=== PATIENT | female | born 1945 | race Two or more races ===

== ENCOUNTER 2017-08-10 20:56 | Inpatient (IN) | payer MEDICARE, MEDICAID ==
[~2017-08-10] VITALS: Ht 157.5 cm; Wt 81.6 kg
[~2017-08-10 20:56] MED LIST: PRED20TA PO
[2017-08-10] MEDS ORDERED: ALBUTEROL FS 2.5 MG/3 ML VIAL.NEB NEB ONE (22:00)
[2017-08-10 22:27] LABS: HEMATOCRIT 36 % (33-45); HEMOGLOBIN 11.9 g/dL (11.5-14.8); LYMPHOCYTES # (AUTO) 1.3 /CMM (0.8-4.8); LYMPHOCYTES % (AUTO) 9.7 % (20.0-44.0); MEAN CORPUSCULAR HEMOGLOBIN 30 PG (26.0-33.0); MEAN CORPUSCULAR HGB CONC 33 g/dl (31.0-36.0); MEAN CORPUSCULAR VOLUME 91 fL (82-100); MONOCYTES # (AUTO) 0.5 /CMM (0.1-1.30); MONOCYTES % (AUTO) 3.7 % (2.0-12.0); NEUTROPHILS # (AUTO) 11.2 /CMM (1.8-8.9); NEUTROPHILS % (AUTO) 86.6 % (43.0-81.0); PLATELET COUNT (AUTO) 163 /CMM (150-450); RDW COEFFICIENT OF VARIATION 19.2 (11.5-15.0); RED BLOOD CELL COUNT(AUTO) 3.97 MIL/uL (4.0-5.2); WHITE BLOOD COUNT (AUTO) 12.9 K/uL (4.3-11.0)
[2017-08-10] MEDS ORDERED: ALBUTEROL FS 2.5 MG/3 ML VIAL.NEB ONE (22:34)
[2017-08-10 22:38] LABS: CALCIUM, SERUM 8.6 mg/dL (8.5-10.1); CARBON DIOXIDE 31 mmol/L (21-32); CHLORIDE 103 mmol/L (98-107); CREATININE 1.1 mg/dL (0.6-1.3); GLUCOSE 232 mg/dL (74-106); POTASSIUM 4.3 mmol/L (3.5-5.1); SODIUM SERUM 140 mmol/L (136-145); UREA NITROGEN, BLOOD 23 mg/dL (7-18)
[2017-08-10 22:56] LABS: ACETAMINOPHEN 0 ug/ml (10-30); ALANINE AMINOTRANSFERASE 21 U/L (12-78); ALBUMIN 2.7 g/dL (3.4-5.0); ALKALINE PHOSPHATASE 114 U/L (46-116); ASPARTATE AMINOTRANSFERASE 9 U/L (15-37); B-TYPE NATRIURETIC PEPTIDE 179 PG/ML (0-125); BILIRUBIN,TOTAL 0.2 mg/dL (0.2-1.0); TOTAL PROTEIN, SERUM 5.9 g/dL (6.4-8.2)
[2017-08-10 22:57] LABS: ALCOHOL, BLOOD < 3 mg/dL (0-0); SALICYLATE 0.2 mg/dL (2.8-20.0)
[2017-08-10 22:58] LABS: TROPONIN I < 0.017 ng/mL (0.00-0.056)
[2017-08-10] MEDS ORDERED: TEMAZEPAM 7.5 MG CAPSULE PO PRN (23:30)
[2017-08-10] MEDS ORDERED: MAG HYDROX/AL HYDROX/SIMETH 30 ML UDC PO PRN (23:30)
[2017-08-10] MEDS ORDERED: MAGNESIUM HYDROXIDE 30 ML UDC PO PRN (23:30)
[2017-08-10] MEDS ORDERED: LORAZEPAM 0.5 MG TABLET PO PRN (23:30)
[2017-08-10] MEDS ORDERED: ACETAMINOPHEN 325 MG TABLET PO PRN (23:30)
[2017-08-11] VITALS (7 sets, daily range): BP systolic 99–145; BP diastolic 59–71
[2017-08-11] MEDS ORDERED: ADAL40PE SQ (00:10)
[2017-08-11] MEDS ORDERED: ASPI-605 PO (00:11)
[2017-08-11] MEDS ORDERED: ATOR20TA PO (00:12)
[2017-08-11] MEDS ORDERED: BUDE0.5A4 NEB (00:16)
[2017-08-11] MEDS ORDERED: BUDE10.2 INH (00:18)
[2017-08-11] MEDS ORDERED: CHOL200026 PO (00:19)
[2017-08-11] MEDS ORDERED: CYAN10009 PO (00:21)
[2017-08-11] MEDS ORDERED: DIVA500T2 PO (00:22)
[2017-08-11] MEDS ORDERED: DONE5TAB34 PO (00:23)
[2017-08-11] MEDS ORDERED: FLUT16SP BNOSTRILS (00:25)
[2017-08-11] MEDS ORDERED: FOLI1TAB16 PO (00:26)
[2017-08-11] MEDS ORDERED: ALEN70TA3 PO (00:30)
[2017-08-11] MEDS ORDERED: LEVA0.6320 NEB (00:31)
[2017-08-11] MEDS ORDERED: ESCI10TA PO (00:39)
[2017-08-11] MEDS ORDERED: LORA10TA7 PO (00:40)
[2017-08-11] MEDS ORDERED: LOSA50TA21 PO (00:41)
[2017-08-11] MEDS ORDERED: METH10TA7 PO (00:43)
[2017-08-11] MEDS ORDERED: METH2.5T PO (00:47)
[2017-08-11] MEDS ORDERED: METO-358 PO (00:49)
[2017-08-11] MEDS ORDERED: MONT10TA22 PO (00:50)
[2017-08-11] MEDS ORDERED: OXYC15TA2 PO (00:53)
[2017-08-11] MEDS ORDERED: CALC-811 PO (00:56)
[2017-08-11] MEDS ORDERED: PANT40TA4 PO (00:56)
[2017-08-11] MEDS ORDERED: Z GUARD REMEDY 2 OZ OINT TP PRN (01:00)
[2017-08-11] MEDS ORDERED: PRED50TA PO ×3 (01:12→01:25)
[2017-08-11] MEDS ORDERED: PRED10TA PO (01:17)
[2017-08-11] MEDS ORDERED: PRED20TA PO (01:27)
[2017-08-11] MEDS ORDERED: PRED5TAB48 PO ×4 (01:29→01:35)
[2017-08-11] MEDS ORDERED: D-ME118S12 PO (01:37)
[2017-08-11] MEDS ORDERED: SENN-18 PO (01:37)
[2017-08-11] MEDS ORDERED: QUET100T PO (01:39)
[2017-08-11] MEDS ORDERED: QUET50TA PO (01:40)
[2017-08-11] MEDS: Z GUARD REMEDY 2 OZ OINT TP SCH (08:18)
[2017-08-11] MEDS: BUDESONIDE RESPULE INH 0.25 MG/2 ML AMPUL.NEB NEB SCH ×2 (12:00→19:51)
[2017-08-11] MEDS ORDERED: oxyCODONE IR immediate release 5 MG PO SCH (12:00)
[2017-08-11] MEDS: CYANOCOBALAMIN 500 MCG TABLET PO SCH (12:28)
[2017-08-11] MEDS ORDERED: oxyCODONE IR immediate release 5 MG PO PRN (12:29)
[2017-08-11] MEDS: LOSARTAN POTASSIUM 50 MG TABLET PO SCH ×2 (12:29→16:25)
[2017-08-11] MEDS: ALBUTEROL FS 2.5 MG/0.5 ML VIAL.NEB NEB SCH ×2 (13:30→19:51)
[2017-08-11] MEDS ORDERED: OLANZAPINE 10 MG VIAL IM STA (13:47)
[2017-08-11] MEDS ORDERED: LORAZEPAM INJ 2 MG/ML VIAL IM ONE (14:00)
[2017-08-11] MEDS: DIVALPROEX SODIUM 250 MG TABLET.DR PO SCH ×2 (16:19→21:19)
[2017-08-11] MEDS: SENNOSIDES 8.6 MG TABLET PO SCH (16:20)
[2017-08-11] MEDS: CALCIUM CARB 600MG /VIT D 1 EACH TABLET PO SCH (16:20)
[2017-08-11] MEDS: DONEPEZIL 5 MG TABLET PO SCH (16:20)
[2017-08-11] MEDS: FLUTICASONE PROPIONATE 16 GM BOTTLE NS SCH (16:26)
[2017-08-11] MEDS: QUETIAPINE FUMARATE 25 MG TABLET PO SCH (16:39)
[2017-08-11] MEDS: METHIMAZOLE (5MG) 5 MG TABLET PO SCH (16:51)
[2017-08-11] MEDS ORDERED: Medication Not On Formulary EA (Budesonide/Formoterol Fumarate (Symbicort 160-4.5 Mcg In INH SCH (17:00)
[2017-08-11] MEDS: LORATADINE 10 MG TABLET PO SCH (22:03)
[2017-08-11] MEDS: QUETIAPINE FUMARATE 100 MG TABLET PO SCH (22:03)
[2017-08-11] MEDS: MONTELUKAST SODIUM (10MG) 10 MG TABLET PO SCH (22:03)
[2017-08-11] MEDS: ATORVASTATIN 10 MG TABLET PO SCH (22:03)
[2017-08-12] MEDS: ALBUTEROL FS 2.5 MG/0.5 ML VIAL.NEB NEB SCH ×4 (01:30→20:58)
[2017-08-12 07:15] LABS: BASOPHILS % (AUTO) 0.4 % (0.0-2.0); EOSINOPHILS # (AUTO) 0.1 /CMM (0.0-0.7); EOSINOPHILS % (AUTO) 0.8 % (0.0-6.0); HEMATOCRIT 37 % (33-45); HEMOGLOBIN 12.3 g/dL (11.5-14.8); LYMPHOCYTES # (AUTO) 2.7 /CMM (0.8-4.8); MEAN CORPUSCULAR HEMOGLOBIN 30 PG (26.0-33.0); MEAN CORPUSCULAR HGB CONC 33 g/dl (31.0-36.0); MEAN CORPUSCULAR VOLUME 91 fL (82-100); MONOCYTES # (AUTO) 0.8 /CMM (0.1-1.30); MONOCYTES % (AUTO) 8.7 % (2.0-12.0); NEUTROPHILS # (AUTO) 5.2 /CMM (1.8-8.9); NEUTROPHILS % (AUTO) 59.1 % (43.0-81.0); PLATELET COUNT (AUTO) 194 /CMM (150-450); RDW COEFFICIENT OF VARIATION 19.1 (11.5-15.0); RED BLOOD CELL COUNT(AUTO) 4.07 MIL/uL (4.0-5.2); WHITE BLOOD COUNT (AUTO) 8.8 K/uL (4.3-11.0)
[2017-08-12 07:50] VITALS: BP 119/50
[2017-08-12] MEDS: BUDESONIDE RESPULE INH 0.25 MG/2 ML AMPUL.NEB NEB SCH ×2 (08:01→20:58)
[2017-08-12] MEDS: SENNOSIDES 8.6 MG TABLET PO SCH ×2 (08:05→16:09)
[2017-08-12] MEDS: DIVALPROEX SODIUM 250 MG TABLET.DR PO SCH ×3 (08:05→21:02)
[2017-08-12] MEDS: CALCIUM CARB 600MG /VIT D 1 EACH TABLET PO SCH ×2 (08:05→16:10)
[2017-08-12] MEDS: CYANOCOBALAMIN 500 MCG TABLET PO SCH (08:06)
[2017-08-12] MEDS: DONEPEZIL 5 MG TABLET PO SCH ×2 (08:06→16:10)
[2017-08-12] MEDS: METHIMAZOLE (5MG) 5 MG TABLET PO SCH ×2 (08:06→16:09)
[2017-08-12] MEDS: QUETIAPINE FUMARATE 25 MG TABLET PO SCH ×2 (08:07→16:18)
[2017-08-12 08:08] LABS: ALBUMIN 2.4 g/dL (3.4-5.0); BILIRUBIN,TOTAL 0.4 mg/dL (0.2-1.0); CALCIUM, SERUM 8.2 mg/dL (8.5-10.1); CREATININE 0.8 mg/dL (0.6-1.3); POTASSIUM 3.7 mmol/L (3.5-5.1); THYROID STIMULATING HORMONE 4.745 uIU/mL (0.358-3.74); TOTAL PROTEIN, SERUM 5.6 g/dL (6.4-8.2)
[2017-08-12] MEDS: ESCITALOPRAM OXALATE (10 MG) 10 MG TABLET PO SCH (08:09)
[2017-08-12] MEDS: ASPIRIN EC 81 MG TABLET.DR PO SCH (08:09)
[2017-08-12] MEDS: FOLIC ACID 1 MG TABLET PO SCH (08:10)
[2017-08-12] MEDS: PANTOPRAZOLE 40 MG TABLET.DR PO SCH (08:10)
[2017-08-12] MEDS: LOSARTAN POTASSIUM 50 MG TABLET PO SCH ×2 (08:10→16:12)
[2017-08-12] MEDS: METOPROLOL SUCCINATE 50 MG TAB.SR.24H PO SCH ×2 (08:10→16:16)
[2017-08-12] MEDS: Z GUARD REMEDY 2 OZ OINT TP SCH (08:13)
[2017-08-12] MEDS: FLUTICASONE PROPIONATE 16 GM BOTTLE NS SCH ×2 (08:13→16:12)
[2017-08-12] MEDS: CHOLECALCIFEROL 1,000 UNIT TABLET (VIT D3) PO SCH (08:15)
[2017-08-12] MEDS ORDERED: CHOLECALCIFEROL 1,000 UNIT TABLET (VIT D3) PO SCH (09:00)
[2017-08-12 16:00] VITALS: BP 127/59
[2017-08-12 19:49] VITALS: BP 96/49
[2017-08-12] MEDS: MONTELUKAST SODIUM (10MG) 10 MG TABLET PO SCH (21:03)
[2017-08-12] MEDS: LORATADINE 10 MG TABLET PO SCH (21:03)
[2017-08-12] MEDS: ATORVASTATIN 10 MG TABLET PO SCH (21:03)
[2017-08-12 21:13] VITALS: BP 108/65
[2017-08-12] MEDS: QUETIAPINE FUMARATE 100 MG TABLET PO SCH (21:14)
[2017-08-13] MEDS: ALBUTEROL FS 2.5 MG/0.5 ML VIAL.NEB NEB SCH ×4 (00:57→19:09)
[2017-08-13 08:00] VITALS: BP 118/54
[2017-08-13] MEDS: BUDESONIDE RESPULE INH 0.25 MG/2 ML AMPUL.NEB NEB SCH ×2 (08:24→19:14)
[2017-08-13] MEDS ORDERED: METHOTREXATE SODIUM (2.5MG) 2.5 MG TABLET PO SCH (09:00)
[2017-08-13] MEDS: ASPIRIN EC 81 MG TABLET.DR PO SCH (09:06)
[2017-08-13] MEDS: CHOLECALCIFEROL 1,000 UNIT TABLET (VIT D3) PO SCH (09:06)
[2017-08-13] MEDS: FOLIC ACID 1 MG TABLET PO SCH (09:06)
[2017-08-13] MEDS: DIVALPROEX SODIUM 250 MG TABLET.DR PO SCH ×3 (09:06→21:22)
[2017-08-13] MEDS: PANTOPRAZOLE 40 MG TABLET.DR PO SCH (09:06)
[2017-08-13] MEDS: DONEPEZIL 5 MG TABLET PO SCH ×2 (09:06→18:52)
[2017-08-13] MEDS: ESCITALOPRAM OXALATE (10 MG) 10 MG TABLET PO SCH (09:06)
[2017-08-13] MEDS: CYANOCOBALAMIN 500 MCG TABLET PO SCH (09:06)
[2017-08-13] MEDS: SENNOSIDES 8.6 MG TABLET PO SCH ×2 (09:06→18:51)
[2017-08-13] MEDS: CALCIUM CARB 600MG /VIT D 1 EACH TABLET PO SCH ×2 (09:06→18:56)
[2017-08-13] MEDS: METOPROLOL SUCCINATE 50 MG TAB.SR.24H PO SCH ×2 (09:08→18:51)
[2017-08-13] MEDS: FLUTICASONE PROPIONATE 16 GM BOTTLE NS SCH ×2 (09:10→17:00)
[2017-08-13] MEDS: NEOMY SULF/BACITRAC ZN/POLY 15 GM TUBE TP SCH (09:11)
[2017-08-13] MEDS: Z GUARD REMEDY 2 OZ OINT TP SCH (09:12)
[2017-08-13] MEDS: QUETIAPINE FUMARATE 25 MG TABLET PO SCH ×2 (09:16→18:56)
[2017-08-13] MEDS: METHIMAZOLE (5MG) 5 MG TABLET PO SCH ×2 (09:17→18:52)
[2017-08-13] MEDS: LOSARTAN POTASSIUM 50 MG TABLET PO SCH ×2 (09:18→18:51)
[2017-08-13] MEDS ORDERED: DEXTROSE 50%-WATER 50 ML DISP.SYRIN IV PRN (11:00)
[2017-08-13] MEDS: BLOOD SUGAR DIAGNOSTIC 1 EACH STRIP IN SCH ×3 (11:43→21:38)
[2017-08-13 16:00] VITALS: BP 100/66
[2017-08-13 20:06] VITALS: BP 107/70
[2017-08-13] MEDS: ATORVASTATIN 10 MG TABLET PO SCH (21:22)
[2017-08-13] MEDS: QUETIAPINE FUMARATE 100 MG TABLET PO SCH (21:22)
[2017-08-13] MEDS: LORATADINE 10 MG TABLET PO SCH (21:22)
[2017-08-13] MEDS: MONTELUKAST SODIUM (10MG) 10 MG TABLET PO SCH (21:22)
[2017-08-13] MEDS: INSULIN REGULAR, HUMAN 100 UNIT/ML 3 ML VIAL SQ PRN (21:42)
[2017-08-14] MEDS: ALBUTEROL FS 2.5 MG/0.5 ML VIAL.NEB NEB SCH ×4 (01:08→22:55)
[2017-08-14] MEDS: BUDESONIDE RESPULE INH 0.25 MG/2 ML AMPUL.NEB NEB SCH ×2 (07:30→19:30)
[2017-08-14 08:00] VITALS: BP 108/63
[2017-08-14] MEDS: DIVALPROEX SODIUM 250 MG TABLET.DR PO SCH ×3 (08:03→20:41)
[2017-08-14] MEDS: METHIMAZOLE (5MG) 5 MG TABLET PO SCH ×2 (08:03→16:16)
[2017-08-14] MEDS: CYANOCOBALAMIN 500 MCG TABLET PO SCH (08:03)
[2017-08-14] MEDS: ESCITALOPRAM OXALATE (10 MG) 10 MG TABLET PO SCH (08:04)
[2017-08-14] MEDS: LOSARTAN POTASSIUM 50 MG TABLET PO SCH ×2 (08:04→16:17)
[2017-08-14] MEDS: CHOLECALCIFEROL 1,000 UNIT TABLET (VIT D3) PO SCH (08:04)
[2017-08-14] MEDS: DONEPEZIL 5 MG TABLET PO SCH ×2 (08:04→16:17)
[2017-08-14] MEDS: QUETIAPINE FUMARATE 25 MG TABLET PO SCH ×2 (08:04→16:15)
[2017-08-14] MEDS: FOLIC ACID 1 MG TABLET PO SCH (08:05)
[2017-08-14] MEDS: SENNOSIDES 8.6 MG TABLET PO SCH ×2 (08:05→16:15)
[2017-08-14] MEDS: PANTOPRAZOLE 40 MG TABLET.DR PO SCH (08:05)
[2017-08-14] MEDS: ASPIRIN EC 81 MG TABLET.DR PO SCH (08:05)
[2017-08-14] MEDS: METOPROLOL SUCCINATE 50 MG TAB.SR.24H PO SCH ×2 (08:05→16:16)
[2017-08-14] MEDS: CALCIUM CARB 600MG /VIT D 1 EACH TABLET PO SCH ×2 (08:05→16:16)
[2017-08-14] MEDS: NEOMY SULF/BACITRAC ZN/POLY 15 GM TUBE TP SCH (08:06)
[2017-08-14] MEDS: BLOOD SUGAR DIAGNOSTIC 1 EACH STRIP IN SCH ×4 (08:12→22:10)
[2017-08-14] MEDS: FLUTICASONE PROPIONATE 16 GM BOTTLE NS SCH ×2 (08:49→16:19)
[2017-08-14] MEDS: Z GUARD REMEDY 2 OZ OINT TP SCH (08:56)
[2017-08-14 15:41] VITALS: BP 120/69
[2017-08-14] MEDS: FLUTICASONE/VILANTEROL 1 EACH BLST.W.DEV IH SCH (15:57)
[2017-08-14 20:00] VITALS: BP 131/68
[2017-08-14] MEDS: ATORVASTATIN 10 MG TABLET PO SCH (22:20)
[2017-08-14] MEDS: LORATADINE 10 MG TABLET PO SCH (22:20)
[2017-08-14] MEDS: MONTELUKAST SODIUM (10MG) 10 MG TABLET PO SCH (22:20)
[2017-08-14] MEDS: QUETIAPINE FUMARATE 100 MG TABLET PO SCH (22:33)
[2017-08-15] MEDS: ALBUTEROL FS 2.5 MG/0.5 ML VIAL.NEB NEB SCH ×4 (02:42→20:38)
[2017-08-15] MEDS: BLOOD SUGAR DIAGNOSTIC 1 EACH STRIP IN SCH ×4 (07:19→21:19)
[2017-08-15] MEDS ORDERED: ALENDRONATE 70 MG TABLET PO SCH (07:30)
[2017-08-15] MEDS: INSULIN REGULAR, HUMAN 100 UNIT/ML 3 ML VIAL SQ PRN ×3 (07:57→17:29)
[2017-08-15 08:00] VITALS: BP 117/59
[2017-08-15] MEDS: BUDESONIDE RESPULE INH 0.25 MG/2 ML AMPUL.NEB NEB SCH ×2 (08:10→19:30)
[2017-08-15] MEDS: PANTOPRAZOLE 40 MG TABLET.DR PO SCH (08:52)
[2017-08-15] MEDS: METHIMAZOLE (5MG) 5 MG TABLET PO SCH ×2 (08:52→16:15)
[2017-08-15] MEDS: QUETIAPINE FUMARATE 25 MG TABLET PO SCH ×2 (08:52→16:15)
[2017-08-15] MEDS: DONEPEZIL 5 MG TABLET PO SCH ×2 (08:52→16:15)
[2017-08-15] MEDS: LOSARTAN POTASSIUM 50 MG TABLET PO SCH ×2 (08:52→16:15)
[2017-08-15] MEDS: DIVALPROEX SODIUM 250 MG TABLET.DR PO SCH ×3 (08:52→20:24)
[2017-08-15] MEDS: CHOLECALCIFEROL 1,000 UNIT TABLET (VIT D3) PO SCH (08:53)
[2017-08-15] MEDS: FOLIC ACID 1 MG TABLET PO SCH (08:53)
[2017-08-15] MEDS: SENNOSIDES 8.6 MG TABLET PO SCH ×2 (08:53→16:14)
[2017-08-15] MEDS: CYANOCOBALAMIN 500 MCG TABLET PO SCH (08:53)
[2017-08-15] MEDS: ESCITALOPRAM OXALATE (10 MG) 10 MG TABLET PO SCH (08:53)
[2017-08-15] MEDS: CALCIUM CARB 600MG /VIT D 1 EACH TABLET PO SCH ×2 (08:53→16:14)
[2017-08-15] MEDS: METOPROLOL SUCCINATE 50 MG TAB.SR.24H PO SCH ×2 (08:53→16:15)
[2017-08-15] MEDS: ASPIRIN EC 81 MG TABLET.DR PO SCH (08:53)
[2017-08-15] MEDS: NEOMY SULF/BACITRAC ZN/POLY 15 GM TUBE TP SCH (08:54)
[2017-08-15] MEDS: Z GUARD REMEDY 2 OZ OINT TP SCH (08:54)
[2017-08-15] MEDS: FLUTICASONE/VILANTEROL 1 EACH BLST.W.DEV IH SCH (08:59)
[2017-08-15] MEDS: FLUTICASONE PROPIONATE 16 GM BOTTLE NS SCH ×2 (09:00→16:17)
[2017-08-15 16:00] VITALS: BP 100/59
[2017-08-15 20:00] VITALS: BP 94/51
[2017-08-15] MEDS: MONTELUKAST SODIUM (10MG) 10 MG TABLET PO SCH (21:19)
[2017-08-15] MEDS: LORATADINE 10 MG TABLET PO SCH (21:19)
[2017-08-15] MEDS: QUETIAPINE FUMARATE 100 MG TABLET PO SCH (21:19)
[2017-08-15] MEDS: ATORVASTATIN 10 MG TABLET PO SCH (21:19)
[2017-08-16] MEDS: ALBUTEROL FS 2.5 MG/0.5 ML VIAL.NEB NEB SCH ×4 (01:30→19:30)
[2017-08-16] MEDS: BLOOD SUGAR DIAGNOSTIC 1 EACH STRIP IN SCH ×4 (07:52→21:31)
[2017-08-16] MEDS: BUDESONIDE RESPULE INH 0.25 MG/2 ML AMPUL.NEB NEB SCH ×2 (07:59→19:30)
[2017-08-16 08:00] VITALS: BP 90/52
[2017-08-16] MEDS: INSULIN REGULAR, HUMAN 100 UNIT/ML 3 ML VIAL SQ PRN (08:10)
[2017-08-16] MEDS: PANTOPRAZOLE 40 MG TABLET.DR PO SCH (08:55)
[2017-08-16] MEDS: CHOLECALCIFEROL 1,000 UNIT TABLET (VIT D3) PO SCH (08:55)
[2017-08-16] MEDS: METHIMAZOLE (5MG) 5 MG TABLET PO SCH ×2 (08:55→16:13)
[2017-08-16] MEDS: CALCIUM CARB 600MG /VIT D 1 EACH TABLET PO SCH ×2 (08:55→16:12)
[2017-08-16] MEDS: ESCITALOPRAM OXALATE (10 MG) 10 MG TABLET PO SCH (08:55)
[2017-08-16] MEDS: QUETIAPINE FUMARATE 25 MG TABLET PO SCH ×2 (08:55→16:13)
[2017-08-16] MEDS: FOLIC ACID 1 MG TABLET PO SCH (08:55)
[2017-08-16] MEDS: DONEPEZIL 5 MG TABLET PO SCH ×2 (08:55→16:13)
[2017-08-16] MEDS: CYANOCOBALAMIN 500 MCG TABLET PO SCH (08:55)
[2017-08-16] MEDS: ASPIRIN EC 81 MG TABLET.DR PO SCH (08:56)
[2017-08-16] MEDS: SENNOSIDES 8.6 MG TABLET PO SCH ×2 (08:56→16:13)
[2017-08-16] MEDS: DIVALPROEX SODIUM 250 MG TABLET.DR PO SCH ×3 (08:57→21:14)
[2017-08-16] MEDS: LOSARTAN POTASSIUM 50 MG TABLET PO SCH ×2 (09:00→16:30)
[2017-08-16] MEDS: METOPROLOL SUCCINATE 50 MG TAB.SR.24H PO SCH ×2 (09:00→16:31)
[2017-08-16] MEDS: NEOMY SULF/BACITRAC ZN/POLY 15 GM TUBE TP SCH (09:08)
[2017-08-16] MEDS: Z GUARD REMEDY 2 OZ OINT TP SCH (09:08)
[2017-08-16] MEDS: FLUTICASONE/VILANTEROL 1 EACH BLST.W.DEV IH SCH (09:14)
[2017-08-16] MEDS: FLUTICASONE PROPIONATE 16 GM BOTTLE NS SCH ×2 (09:14→16:36)
[2017-08-16 16:27] VITALS: BP 84/51
[2017-08-16 20:00] VITALS: BP 92/54
[2017-08-16] MEDS: QUETIAPINE FUMARATE 100 MG TABLET PO SCH (21:14)
[2017-08-16] MEDS: MONTELUKAST SODIUM (10MG) 10 MG TABLET PO SCH (21:14)
[2017-08-16] MEDS: LORATADINE 10 MG TABLET PO SCH (21:14)
[2017-08-16] MEDS: ATORVASTATIN 10 MG TABLET PO SCH (21:35)
[2017-08-17] MEDS: ALBUTEROL FS 2.5 MG/0.5 ML VIAL.NEB NEB SCH ×5 (01:20→20:44)
[2017-08-17] MEDS: BUDESONIDE RESPULE INH 0.25 MG/2 ML AMPUL.NEB NEB SCH ×2 (07:30→19:30)
[2017-08-17 08:00] VITALS: BP 119/68
[2017-08-17] MEDS: BLOOD SUGAR DIAGNOSTIC 1 EACH STRIP IN SCH ×4 (08:11→21:43)
[2017-08-17] MEDS: INSULIN REGULAR, HUMAN 100 UNIT/ML 3 ML VIAL SQ PRN (08:12)
[2017-08-17] MEDS: NEOMY SULF/BACITRAC ZN/POLY 15 GM TUBE TP SCH (08:12)
[2017-08-17] MEDS: CALCIUM CARB 600MG /VIT D 1 EACH TABLET PO SCH ×2 (08:13→16:49)
[2017-08-17] MEDS: PANTOPRAZOLE 40 MG TABLET.DR PO SCH (08:13)
[2017-08-17] MEDS: CYANOCOBALAMIN 500 MCG TABLET PO SCH (08:13)
[2017-08-17] MEDS: METHIMAZOLE (5MG) 5 MG TABLET PO SCH ×2 (08:14→16:51)
[2017-08-17] MEDS: SENNOSIDES 8.6 MG TABLET PO SCH ×2 (08:14→16:50)
[2017-08-17] MEDS: QUETIAPINE FUMARATE 25 MG TABLET PO SCH ×2 (08:14→16:50)
[2017-08-17] MEDS: ASPIRIN EC 81 MG TABLET.DR PO SCH (08:14)
[2017-08-17] MEDS: CHOLECALCIFEROL 1,000 UNIT TABLET (VIT D3) PO SCH (08:14)
[2017-08-17] MEDS: LOSARTAN POTASSIUM 50 MG TABLET PO SCH ×2 (08:15→16:51)
[2017-08-17] MEDS: FLUTICASONE PROPIONATE 16 GM BOTTLE NS SCH ×2 (08:16→16:59)
[2017-08-17] MEDS: FLUTICASONE/VILANTEROL 1 EACH BLST.W.DEV IH SCH (08:16)
[2017-08-17] MEDS: DIVALPROEX SODIUM 250 MG TABLET.DR PO SCH ×3 (08:24→21:41)
[2017-08-17] MEDS: METOPROLOL SUCCINATE 50 MG TAB.SR.24H PO SCH ×2 (08:24→16:51)
[2017-08-17] MEDS: ESCITALOPRAM OXALATE (10 MG) 10 MG TABLET PO SCH (08:24)
[2017-08-17] MEDS: FOLIC ACID 1 MG TABLET PO SCH (08:24)
[2017-08-17] MEDS: Z GUARD REMEDY 2 OZ OINT TP SCH (08:25)
[2017-08-17] MEDS: DONEPEZIL 5 MG TABLET PO SCH ×2 (09:02→16:49)
[2017-08-17] MEDS ORDERED: ONDANSETRON HCL/PF 4 MG/2 ML VIAL ONE (14:41)
[2017-08-17] MEDS ORDERED: HYDROMORPHONE 1 MG/1 ML DISP.SYRIN ONE (14:41)
[2017-08-17 15:54] VITALS: BP 101/67
[2017-08-17 19:46] VITALS: BP 123/65
[2017-08-17] MEDS: MONTELUKAST SODIUM (10MG) 10 MG TABLET PO SCH (21:41)
[2017-08-17] MEDS: ATORVASTATIN 10 MG TABLET PO SCH (21:41)
[2017-08-17] MEDS: QUETIAPINE FUMARATE 100 MG TABLET PO SCH (21:41)
[2017-08-17] MEDS: LORATADINE 10 MG TABLET PO SCH (21:42)
[2017-08-18] MEDS: ALBUTEROL FS 2.5 MG/0.5 ML VIAL.NEB NEB SCH ×4 (01:30→20:45)
[2017-08-18] MEDS: BLOOD SUGAR DIAGNOSTIC 1 EACH STRIP IN SCH ×4 (07:30→22:21)
[2017-08-18] MEDS: BUDESONIDE RESPULE INH 0.25 MG/2 ML AMPUL.NEB NEB SCH ×2 (07:30→20:44)
[2017-08-18 08:00] VITALS: BP 114/68
[2017-08-18] MEDS: LOSARTAN POTASSIUM 50 MG TABLET PO SCH ×2 (08:19→16:19)
[2017-08-18] MEDS: PANTOPRAZOLE 40 MG TABLET.DR PO SCH (08:20)
[2017-08-18] MEDS: METHIMAZOLE (5MG) 5 MG TABLET PO SCH ×2 (08:20→16:19)
[2017-08-18] MEDS: QUETIAPINE FUMARATE 25 MG TABLET PO SCH ×2 (08:20→16:18)
[2017-08-18] MEDS: FOLIC ACID 1 MG TABLET PO SCH (08:20)
[2017-08-18] MEDS: ESCITALOPRAM OXALATE (10 MG) 10 MG TABLET PO SCH (08:20)
[2017-08-18] MEDS: DIVALPROEX SODIUM 250 MG TABLET.DR PO SCH ×3 (08:20→20:44)
[2017-08-18] MEDS: CALCIUM CARB 600MG /VIT D 1 EACH TABLET PO SCH ×2 (08:20→16:19)
[2017-08-18] MEDS: CHOLECALCIFEROL 1,000 UNIT TABLET (VIT D3) PO SCH (08:20)
[2017-08-18] MEDS: METOPROLOL SUCCINATE 50 MG TAB.SR.24H PO SCH ×2 (08:21→16:19)
[2017-08-18] MEDS: CYANOCOBALAMIN 500 MCG TABLET PO SCH (08:21)
[2017-08-18] MEDS: ASPIRIN EC 81 MG TABLET.DR PO SCH (08:21)
[2017-08-18] MEDS: FLUTICASONE PROPIONATE 16 GM BOTTLE NS SCH ×2 (08:22→17:01)
[2017-08-18] MEDS: DONEPEZIL 5 MG TABLET PO SCH ×2 (08:22→16:18)
[2017-08-18] MEDS: FLUTICASONE/VILANTEROL 1 EACH BLST.W.DEV IH SCH (08:22)
[2017-08-18] MEDS: NEOMY SULF/BACITRAC ZN/POLY 15 GM TUBE TP SCH (08:22)
[2017-08-18] MEDS: SENNOSIDES 8.6 MG TABLET PO SCH ×2 (08:22→16:19)
[2017-08-18] MEDS: Z GUARD REMEDY 2 OZ OINT TP SCH (08:23)
[2017-08-18 16:00] VITALS: BP 124/63
[2017-08-18 20:03] VITALS: BP 104/65
[2017-08-18] MEDS: MONTELUKAST SODIUM (10MG) 10 MG TABLET PO SCH (20:44)
[2017-08-18] MEDS: ATORVASTATIN 10 MG TABLET PO SCH (20:44)
[2017-08-18] MEDS: QUETIAPINE FUMARATE 100 MG TABLET PO SCH (20:48)
[2017-08-18] MEDS: LORATADINE 10 MG TABLET PO SCH (20:48)
[2017-08-19] MEDS: ALBUTEROL FS 2.5 MG/0.5 ML VIAL.NEB NEB SCH ×3 (01:18→13:32)
[2017-08-19] MEDS: BUDESONIDE RESPULE INH 0.25 MG/2 ML AMPUL.NEB NEB SCH (07:30)
[2017-08-19] MEDS: LOSARTAN POTASSIUM 50 MG TABLET PO SCH (07:54)
[2017-08-19] MEDS: SENNOSIDES 8.6 MG TABLET PO SCH (07:55)
[2017-08-19] MEDS: METHIMAZOLE (5MG) 5 MG TABLET PO SCH (07:55)
[2017-08-19] MEDS: ESCITALOPRAM OXALATE (10 MG) 10 MG TABLET PO SCH (07:55)
[2017-08-19] MEDS: CHOLECALCIFEROL 1,000 UNIT TABLET (VIT D3) PO SCH (07:55)
[2017-08-19] MEDS: QUETIAPINE FUMARATE 25 MG TABLET PO SCH (07:55)
[2017-08-19] MEDS: PANTOPRAZOLE 40 MG TABLET.DR PO SCH (07:55)
[2017-08-19] MEDS: ASPIRIN EC 81 MG TABLET.DR PO SCH (07:56)
[2017-08-19] MEDS: CALCIUM CARB 600MG /VIT D 1 EACH TABLET PO SCH (07:56)
[2017-08-19] MEDS: FOLIC ACID 1 MG TABLET PO SCH (07:56)
[2017-08-19] MEDS: DIVALPROEX SODIUM 250 MG TABLET.DR PO SCH (07:56)
[2017-08-19] MEDS: FLUTICASONE/VILANTEROL 1 EACH BLST.W.DEV IH SCH (07:56)
[2017-08-19] MEDS: CYANOCOBALAMIN 500 MCG TABLET PO SCH (07:56)
[2017-08-19] MEDS: DONEPEZIL 5 MG TABLET PO SCH (07:56)
[2017-08-19] MEDS: NEOMY SULF/BACITRAC ZN/POLY 15 GM TUBE TP SCH (07:57)
[2017-08-19] MEDS: Z GUARD REMEDY 2 OZ OINT TP SCH (07:57)
[2017-08-19] MEDS: FLUTICASONE PROPIONATE 16 GM BOTTLE NS SCH (07:57)
[2017-08-19] MEDS: BLOOD SUGAR DIAGNOSTIC 1 EACH STRIP IN SCH ×2 (08:00→12:43)
[2017-08-19] MEDS: METOPROLOL SUCCINATE 50 MG TAB.SR.24H PO SCH (08:25)
[2017-08-19 08:42] VITALS: BP 107/53
== END 2017-08-19 16:51 | DRG 885 ==
LOC: ER 20:58 → GPS 22:57
PROVIDERS: ADMIT Psychiatry & Neurology Psychiatry; ATTEND Psychiatry & Neurology Psychiatry
DX: F29 Unspecified psychosis not due to a substance or known physiological condition (principal); F03.91 Unspecified dementia, unspecified severity, with behavioral disturbance; J44.9 Chronic obstructive pulmonary disease, unspecified; J45.909 Unspecified asthma, uncomplicated; Z79.82 Long term (current) use of aspirin; Z79.899 Other long term (current) drug therapy; M06.9 Rheumatoid arthritis, unspecified; I25.10 Atherosclerotic heart disease of native coronary artery without angina pectoris; I10 Essential (primary) hypertension; E03.9 Hypothyroidism, unspecified; F41.9 Anxiety disorder, unspecified; F32.9 Major depressive disorder, single episode, unspecified; I73.9 Peripheral vascular disease, unspecified; L98.9 Disorder of the skin and subcutaneous tissue, unspecified; Z73.6 Limitation of activities due to disability; S20.319A Abrasion of unspecified front wall of thorax, initial encounter; S20.419A Abrasion of unspecified back wall of thorax, initial encounter; S00.511A Abrasion of lip, initial encounter; X78.9XXA Intentional self-harm by unspecified sharp object, initial encounter; Y92.129 Unspecified place in nursing home as the place of occurrence of the external cause; R73.03 Prediabetes
CPT/HCPCS: 36415; 71045-TC; 80048-TC; 80053-TC; 80061-TC; 80076-TC; 82962-TC; 83880; 84443-TC; 84484-TC; 85025-TC; 87081-TC; A4606; A6402; G0480; J1170; J1815; J2060; J2405; J3490; J8610; Z7610